=== PATIENT | male | born 1985 | race Caucasian/White ===

== ENCOUNTER 2019-01-24 05:40 | Day surgery (SDC) | payer BC, OTHER ==
[2019-01-24] MEDS: LACTATED RINGER'S 1,000 ML IV (07:21)
[2019-01-24] MEDS ORDERED: SEVOFLURANE 15 MIN (07:30)
[2019-01-24] MEDS ORDERED: PROPOFOL 20 ML (07:31)
[2019-01-24] MEDS ORDERED: BUPIVACAINE 0.5% (SDV) 30 ML INJ (07:41)
[2019-01-24] MEDS ORDERED: LIDOCAINE 2% (SDV) 5 ML INJ (07:52)
[2019-01-24] MEDS ORDERED: ROCURONIUM 50 MG INJ (07:52)
[2019-01-24] MEDS ORDERED: CEFAZOLIN 1 GM INJ (07:52)
[2019-01-24] MEDS ORDERED: HYDROmorphONE 2 MG/ML SYG (07:55)
[2019-01-24] MEDS ORDERED: DEXAMETHASONE 4 MG/ML 5 ML INJ (07:59)
[2019-01-24] MEDS: EPINEPHrine 1 MG/ML 30 ML INJ IRR ×2 (09:01→11:33)
[2019-01-24] MEDS: morphine SULFATE/PF (10 MG/10 ML) INJ (09:01)
[2019-01-24] MEDS: POLYMYXIN/BACITRACIN 1L IRRIG (09:01)
[2019-01-24] MEDS ORDERED: ONDANSETRON 4 MG INJ (12:03)
[2019-01-24] MEDS ORDERED: EPHEDrine 25 MG/5 ML SYG IV (12:30)
[2019-01-24] MEDS ORDERED: KETOROLAC 30 MG INJ IV (12:30)
[2019-01-24] MEDS ORDERED: LABETALOL HCL 20MG INJ IV (12:30)
[2019-01-24] MEDS ORDERED: HYDROmorphONE 1 MG/5 ML IV SYRINGE IV ×3 (12:30→12:33)
[2019-01-24] MEDS ORDERED: DIPHENHYDRAMINE 50 MG INJ IV (12:30)
[2019-01-24] MEDS ORDERED: METOCLOPRAMIDE 10 MG INJ IV (12:30)
[2019-01-24] MEDS ORDERED: OXYCODONE/ACETAMINOPHEN (5/325) TAB PO ×2 (12:30)
[2019-01-24] MEDS ORDERED: hydrALAzine 20 MG INJ IV (12:30)
[2019-01-24] MEDS ORDERED: FENTAnyl 50 MCG/ML VIAL IV ×3 (12:30)
[2019-01-24] MEDS ORDERED: ALBUTEROL 0.083% (NEB) 2.5 MG/3 ML AMP HHN (12:30)
[2019-01-24] MEDS ORDERED: ONDANSETRON 4 MG INJ IV (12:30)
[2019-01-24] MEDS ORDERED: HYDROCODONE/APAP (5/325) TAB PO ×2 (12:30)
[2019-01-24] MEDS ORDERED: MEPERIDINE 25 MG INJ (12:32)
[2019-01-24] MEDS: MEPERIDINE 25 MG INJ IV (12:58)
[2019-01-24] MEDS: HYDROmorphONE 1 MG/5 ML IV SYRINGE IV (13:04)
== END 2019-01-24 14:30 | disposition home or self-care (01) ==
LOC: SDS 05:40
DX: S83.282A Other tear of lateral meniscus, current injury, left knee, initial encounter (principal); S83.242A Other tear of medial meniscus, current injury, left knee, initial encounter; S83.512A Sprain of anterior cruciate ligament of left knee, initial encounter; X58.XXXA Exposure to other specified factors, initial encounter; Y93.89 Activity, other specified; Y92.89 Other specified places as the place of occurrence of the external cause; Y99.8 Other external cause status; F31.9 Bipolar disorder, unspecified
CPT/HCPCS: 29880